=== PATIENT | female | born 1970 | race Two or more races ===

== ENCOUNTER 2025-09-17 20:06 | Emergency (ER) | payer MEDICAID, OTHER ==
[~2025-09-17] VITALS: Ht 154.9 cm; Wt 90.9 kg
[2025-09-17] MEDS ORDERED: NITROGLYCERIN 0.4 MG SL TAB SL ONE (20:15)
--- NOTE | 2025-09-17 20:47 | ED.PDOC ---
History of Present Illness HPI Comments 55 y/o F is BIBA for c/c of flu-like symptoms. Patient endorses on having congestion, generalized bodyaches, substernal chest pain, nausea, and vomiting for the past 3x days. Chest pain radiates to her left arm. Positive sick contact with mother, who is hospitalized and was found with a flu. History of DMII and HTN. Denial of any fever, chills or further acute symptoms. Chief Complaint: Chest Pain Time Seen by MD: 20:15 Reviewed Notes: Nurses Notes, Medications, Allergies Allergies: Coded Allergies: NO KNOWN ALLERGIES (Unverified , 09/17/25) Information Source: Patient Mode of Arrival: EMS Severity: Moderate Timing: Days Duration: Since onset Prehospital treatment: 12 Lead EKG, Shellac Polisher Past Medical History PAST MEDICAL HISTORY: DM, HTN Surgical History: Denies all surgeries WHARF TENDER History: Denies all WHARF TENDER Hx Social History Smoker: Non-Smoker Alcohol: Denies ETOH Use Drugs: Denies Drug Use Lives In: Home All Other Systems: Reviewed and Negative (Comprehensive systems review obtained and negative except for what is stated in the HPI.) Physical Exam General Appearance: No Apparent Distress, Normal HEENT: Normal ENT Inspection, Pharynx Normal, TMs Normal Neck: Full Range of Motion, Non-Tender, Normal, Normal Inspection Respiratory: Lungs Clear, No Accessory Muscle Use, No Respiratory Distress, N ormal Breath Sounds Cardiovascular: No Edema, No JVD, No Murmur, No Gallop, Normal Peripheral Pulses, Regular Rate/Rhythm Breast Exam: Deferred Gastrointestinal: No Organomegaly, Non Tender, No Pulsatile Mass, Normal Bowel Sounds, Soft Genitalia: Deferred Pelvic: Deferred Rectal: Deferred Extremities: No calf tenderness, Normal capillary refill, Normal inspection, Normal range of motion, Non-tender, No pedal edema Musculoskeletal : Extremity Location: Chest Apperance: Normal, Tenderness (with palpation and movement, chest ) Neurologic: Alert, business development engineer II-XII nml as Tested, No Motor Deficits, Normal Affect, Normal Mood, No Sensory Deficits Cerebellar Function: Normal Reflexes: Normal Skin: Dry, Normal Color, Warm Lymphatic: No Adenopathy Was a procedure done? Was a procedure done?: No EKG EKG : Pulse Rate (adult): 78 [place]: Normal Cardiac Rhythm: NSR Block: None Hypertrophy: None ST: Normal Differential Dx Considerations may include: MD, PE, ACS, URI, PNA, angina, anxiety, gastritis, GERD, cholelithiasis, among others X-Ray, Labs, Meds, VS Vital Signs Date Time Temp Pulse Resp B/P (MAP) Pulse Ox O2 Delivery O2 Flow Rate FiO2 09/17/25 21:01 97.9 77 22 129/73 100 97.9 09/17/25 20:47 78 09/17/25 20:09 78 Lab Test 09/17/25 20:27 Range/Units White Blood Count 6.7 4.4-10.8 10^3/uL Red Blood Count 4.50 4.0-5.20 10^6/uL Hemoglobin 12.6 12.2-16.2 g/dL Hematocrit 38.2 36.0-46.0 % Mean Corpuscular Volume 84.8 80.0-100.0 fL Mean Corpuscular Hemoglobin 28.0 28.0-32.0 pg Mean Corpuscular Hemoglobin Concent 33.0 32.0-36.0 g/dL Red Cell Distribution Width 13.9 11.8-14.3 % Platelet Count 90 L 140-450 10^3/uL Mean Platelet Volume 11.6 H 6.9-10.8 fL Neutrophils (%) (Auto) 66.0 37.0-80.0 % Lymphocytes (%) (Auto) 26.0 10.0-50.0 % Monocytes (%) (Auto) 6.7 0.0-12.0 % Eosinophils (%) (Auto) 0.7 0.0-7.0 % Basophils (%) (Auto) 0.6 0.0-2.0 % Neutrophils # (Auto) 4.4 1.6-8.6 10 ^3/uL Lymphocytes # (Auto) 1.8 0.4-5.4 10 ^3/uL Monocytes # (Auto) 0.5 0-1.3 10 ^3/uL Eosinophils # (Auto) 0 0-0.8 10 ^3/uL Basophils # (Auto) 0 0-0.2 10 ^3/uL Nucleated Red Blood Cells 0.1 % Platelet Estimate Decreased Sodium Level 140 136-145 mmol/L Potassium Level 4.2 3.5-5.1 mmol/L Chloride Level 104 98-107 mmol/L Carbon Dioxide Level 24 20-31 mmol/L Anion Gap 12 5-15 Blood Urea Nitrogen 10 9-23 mg/dL Creatinine 1.05 H 0.550-1.02 mg/dL Glomerular Filtration Rate Calc 64 >90 mL/min BUN/Creatinine Ratio 9.5 L 10.0-20.0 Serum Glucose 92 74-106 mg/dL Calcium Level 8.8 8.7-10.4 mg/dL Troponin I High Sensitivity < 3 L </=34 ng/L Time of 1ST Reevaluation: 20:45 Reevaluation 1ST: Unchanged Time of 2ND Reevaluation: 00:38 Reevaluation 2ND: eloped Patient Education/Counseling: Diagnosis, Treatment Family Education/Counseling: No Family Present SEPSIS Sepsis Screen Physician Orders Continuous Ekg Monitoring 08,12,16,20,00,04 (09/17/25 20:12) Electrocardigram (09/17/25 21:12) Electrocardigram (09/17/25 23:12) Vital Signs Date Time Temp Pulse Resp B/P (MAP) Pulse Ox O2 Delivery O2 Flow Rate FiO2 09/17/25 21:01 97.9 77 22 129/73 100 97.9 09/17/25 20:47 78 09/17/25 20:09 78 Laboratory Tests Test 09/17/25 20:27 White Blood Count 6.7 10^3/uL (4.4-10.8) Departure 1 Departure Time of Disposition: 00:38 Impression: Primary Impression: Viral syndrome Disposition: 07 LEFT AWOL/ELOPED Condition: Other (unknown) Critical Care Note Critical Care Time?: No Stability Stability form required: No Heart Score Heart Score: Heart Score Response (Comments) Value History Slightly Suspicious 0 EKG Normal 0 Age 45-64 1 Risk Factors 1 or 2 risk factors 1 Troponin Normal limit 0 Total 2 I personally scribed for PATRICA AREVALO MD ([email or web address]) on 09/17/25 at 20:47. Electronically submitted by Papi Boss ([email or web address]). PATRICA AREVALO MD Sep 17, 2025 20:47
[2025-09-17 20:49] LABS: Hematocrit 38.2 % (36.0-46.0); Hemoglobin 12.6 g/dL (12.2-16.2); Mean Corpuscular Hemoglobin 28.0 pg (28.0-32.0); Mean Corpuscular Volume 84.8 fL (80.0-100.0); Nucleated Red Blood Cells % 0.1 %
[2025-09-17 21:01] VITALS: BP 129/73; PULSE 77; RESP 22; TEMP 97.9; O2SAT 100
[2025-09-17 21:05] LABS: Anion Gap 12 (5-15); Carbon Dioxide 24 mmol/L (20-31); Chloride 104 mmol/L (98-107); Potassium 4.2 mmol/L (3.5-5.1); Sodium 140 mmol/L (136-145)
[2025-09-17 21:06] LABS: Calcium 8.8 mg/dL (8.7-10.4)
[2025-09-17 21:10] LABS: Glucose 92 mg/dL (74-106)
[2025-09-17 21:11] LABS: BUN/Creatinine Ratio 9.5 (10.0-20.0); Blood Urea Nitrogen 10 mg/dL (9-23)
--- NOTE | 2025-09-17 21:16 | ECG ---
[facility] Test Date: 2025-09-17 Test Time: 20:09:17 Pat Name: JACQUE MENDIOLA Department: [facility] ED Patient ID: [id number] Room: Gender: F Program Development Specialist: patrick : 1970 Requested By: PATRICA AREVALO Order Number: [id number] Reading MD: Chan Boo Measurements Intervals [place] Rate: 78 P: 48 FL: 160 QRS: 18 QRSD: 85 T: 5 QT: 398 QTc: 454 Interpretive Statements Sinus rhythm Low voltage, precordial leads Borderline T abnormalities, inferior leads Electronically Signed On 09-19-2025 15:26:50 PST by Chan Boo Please click the below link to view image of tracing.
== END 2025-09-17 22:19 | disposition left against medical advice (07) ==
LOC: ER 20:06 → EDBD 20:06 → ER 22:19
DX: B34.9 Viral infection, unspecified (principal); I10 Essential (primary) hypertension; E11.9 Type 2 diabetes mellitus without complications
CPT/HCPCS: 36415; 80048; 84484; 85025; 93005